=== PATIENT | male | born 1945 | race Caucasian/White ===

== ENCOUNTER 2018-11-18 16:04 | Inpatient (IN) | payer MEDICARE ==
[~2018-11-18] VITALS: Ht 182.9 cm; Wt 88.5 kg
[2018-11-18 16:46] LABS: APPEARANCE,URINE Clear (CLEAR); BILIRUBIN,URINE Negative (NEGATIVE); COLOR,URINE Yellow (YELLOW); GLUCOSE, URINE (UA) Negative (NEGATIVE); KETONES,URINE Negative (NEGATIVE); LEUKOCYTE ESTERASE ,URINE Negative (NEGATIVE); NITRATE,URINE Negative (NEGATIVE); OCCULT BLOOD,URINE Negative (NEGATIVE); PH,URINE 5.5 (5.0-8.0); PROTEIN,URINE Negative (NEGATIVE); UROBILINOGEN,URINE 0.2 mg/dL (0.2-1.0)
[2018-11-18] MEDS ORDERED: CEFTRIAXONE SODIUM 2 GM VIAL ONE (16:49)
[2018-11-18] MEDS ORDERED: KETOROLAC TROMETHAMINE 30MG/ML ONE (16:49)
[2018-11-18 17:11] LABS: BASOPHILS % (AUTO) 1.4 % (0.0-5.0); EOSINOPHILS % (AUTO) 5.1 % (0.0-8.0); HEMATOCRIT 42.3 % (42-54); LYMPHOCYTES % (AUTO) 31.3 % (21.0-51.0); MEAN CORPUSCULAR HEMOGLOBIN 30.9 pg (27.0-33.0); MEAN CORPUSCULAR HGB CONC 35.2 g/dL (32.0-36.0); MONOCYTES % (AUTO) 7.2 % (3.0-13.0); PLATELET COUNT (AUTO) 202 K/uL (130-400); RED BLOOD CELL COUNT(AUTO) 4.81 MIL/uL (4.50-6.20); RED CELL DISTRIBUTION WIDTH 12.6 % (11.0-15.5); WHITE BLOOD COUNT (AUTO) 5.7 K/uL (4.8-10.8)
[2018-11-18 17:28] LABS: INR 0.93 (0.85-1.15); PARTIAL THROMBOPLASTIN TIME 28.6 SEC (26.3-35.5); PROTHROMBIN TIME 9.8 SEC (9.6-11.6)
[2018-11-18 17:37] LABS: CARBON DIOXIDE 28 mmol/L (21-32); CHLORIDE 101 mmol/L (101-111); GLOMERULAR FILTR. RATE CALC 78 mL/min (>60); GLUCOSE,RANDOM 87 mg/dL (70-105); POTASSIUM 4.2 mmol/L (3.5-5.1); SODIUM SERUM 140 mmol/L (136-145); UREA NITROGEN, BLOOD 16 mg/dL (7-18)
[2018-11-18 17:48] LABS: ALANINE AMINOTRANSFERASE 26 U/L (12-78); ALBUMIN 3.9 g/dL (3.5-5.0); ASPARTATE AMINOTRANSFERASE 30 U/L (10-37); BILIRUBIN,TOTAL 0.6 mg/dL (0.2-1.0); CREATINE KINASE, TOTAL 94 U/L (21-232); MYOGLOBIN 59 ng/mL (10-92); TOTAL PROTEIN, SERUM 7.6 g/dL (6.0-8.3); TROPONIN I < 0.04 ng/mL (0.00-0.06)
[2018-11-18] MEDS ORDERED: KETOROLAC TROMETHAMINE 30MG/ML IV PRN (19:15)
[2018-11-18] MEDS ORDERED: FAMOTIDINE 20MG TAB 20 MG TAB ONE (19:59)
[2018-11-18] MEDS ORDERED: ZOSYN 3.375GM+NS 50ML 50 ML IV ONE (19:59)
[2018-11-18] MEDS ORDERED: ASPI-555 PO (23:02)
[2018-11-18] MEDS ORDERED: ROSU10TA22 PO (23:02)
--- NOTE | 2018-11-19 01:20 | NUR ---
ADMISSION NOTE: Received to floor per stretcher from ER. Fully awake and responsive. AOx3. VS checked and recorded. Assessment done ( See CPOE flow chart for full assessment). Plan of care initiated. Home meds listed. Photo of the wound taken and attached to chart. Monitored and observed for any unusual changes. Needs attended and cared for. Denies feeling of discomfort. No apparent distress noted.
[2018-11-19 01:30] VITALS: BP 141/86
[2018-11-19] MEDS: ZOSYN 3.375GM+NS 50ML 50 ML IV SCH ×3 (05:44→21:18)
[2018-11-19 05:45] VITALS: BP 135/80
[2018-11-19 06:31] LABS: BASOPHILS % (AUTO) 1.1 % (0.0-5.0); EOSINOPHILS % (AUTO) 5.7 % (0.0-8.0); HEMATOCRIT 40.6 % (42-54); LYMPHOCYTES % (AUTO) 29.3 % (21.0-51.0); MEAN CORPUSCULAR HEMOGLOBIN 30.8 pg (27.0-33.0); MEAN CORPUSCULAR HGB CONC 34.5 g/dL (32.0-36.0); MEAN CORPUSCULAR VOLUME 89.4 fL (79-99); MONOCYTES % (AUTO) 7.9 % (3.0-13.0); PLATELET COUNT (AUTO) 164 K/uL (130-400); RED BLOOD CELL COUNT(AUTO) 4.54 MIL/uL (4.50-6.20); RED CELL DISTRIBUTION WIDTH 12.2 % (11.0-15.5); WHITE BLOOD COUNT (AUTO) 5.8 K/uL (4.8-10.8)
[2018-11-19 06:44] LABS: ALBUMIN 3.4 g/dL (3.5-5.0); BILIRUBIN,TOTAL 0.5 mg/dL (0.2-1.0); CREATININE 1.1 mg/dL (0.5-1.5); POTASSIUM 4.1 mmol/L (3.5-5.1); TOTAL PROTEIN, SERUM 6.6 g/dL (6.0-8.3)
[2018-11-19 08:00] VITALS: BP 148/76
[2018-11-19] MEDS: ENOXAPARIN SODIUM 30 MG/0.3 ML SQ SCH (08:31)
[2018-11-19] MEDS: FAMOTIDINE 20MG TAB 20 MG TAB PO SCH ×2 (08:32→21:19)
[2018-11-19] MEDS: ASPIRIN 81 MG EC TAB PO SCH (08:38)
--- NOTE | 2018-11-19 12:05 | NUR ---
DCP CM met with pt discussed dc plans. Pt is independent prior to admission, lives at home with spouse. Pt has a cane and shower chair at home. Denies any equipments/services. Pt feels safe to go back home, spouse able to assist with transportation and needs as necessary. DC plan to home once stable. CM to cont to follow up. Addendum: 11/19/18 at 1207 by ANALI YNAG LVN CM Amended: Links added.
[2018-11-19 12:55] VITALS: BP 128/87
--- NOTE | 2018-11-19 14:46 | NUR ---
[facility] CONSULT PATIENT ASSESSED REQUESTED: PRESENTS WITH INSECT BITE TO RT LEG MEDIAL WITH DECREASED REDNESS AND DECREASED PAIN; [facility] RECOMMENDATIONS SUBMITTED. Addendum: 11/19/18 at 1449 by DOROTHY ARRIOLA LVN LVN W Amended: Links added.
[2018-11-19] MEDS ORDERED: CEFTRIAXONE SODIUM 1 GM IVP SCH (16:00)
[2018-11-19 16:19] VITALS: BP 126/69
[2018-11-19 19:20] VITALS: BP 136/76
[2018-11-19] MEDS ORDERED: ATORVASTATIN CALCIUM 20 MG TABLET PO SCH (21:00)
[2018-11-19] MEDS: BENZOCAINE/MENTH/CETYLPYRD CL 1 EACH LOZENGE MM PRN (22:05)
[2018-11-20 03:25] VITALS: BP 138/70
[2018-11-20] MEDS: ZOSYN 3.375GM+NS 50ML 50 ML IV SCH (05:44)
[2018-11-20 05:45] LABS: BASOPHILS % (AUTO) 1.3 % (0.0-5.0); EOSINOPHILS % (AUTO) 5.5 % (0.0-8.0); HEMATOCRIT 40.7 % (42-54); LYMPHOCYTES % (AUTO) 23.6 % (21.0-51.0); MEAN CORPUSCULAR HEMOGLOBIN 31.4 pg (27.0-33.0); MEAN CORPUSCULAR HGB CONC 35.5 g/dL (32.0-36.0); MEAN CORPUSCULAR VOLUME 88.4 fL (79-99); MONOCYTES % (AUTO) 8.2 % (3.0-13.0); NEUTROPHILS % (AUTO) 61.4 % (40.0-77.0); PLATELET COUNT (AUTO) 188 K/uL (130-400); RED CELL DISTRIBUTION WIDTH 12.3 % (11.0-15.5); WHITE BLOOD COUNT (AUTO) 6.1 K/uL (4.8-10.8)
[2018-11-20 05:56] LABS: CREATININE 1.2 mg/dL (0.5-1.5); POTASSIUM 4.1 mmol/L (3.5-5.1)
[2018-11-20 07:55] VITALS: BP 123/72
[2018-11-20] MEDS ORDERED: FLU VACC QS2019-20 36MOS UP/PF 60 MCG/0.5 ML ML IM ONE (09:00)
[2018-11-20] MEDS: FAMOTIDINE 20MG TAB 20 MG TAB PO SCH (09:06)
[2018-11-20] MEDS: ASPIRIN 81 MG EC TAB PO SCH (09:06)
[2018-11-20] MEDS: BENZOCAINE/MENTH/CETYLPYRD CL 1 EACH LOZENGE MM PRN (09:07)
[2018-11-20] MEDS: ENOXAPARIN SODIUM 30 MG/0.3 ML SQ SCH (09:09)
[2018-11-20] MEDS ORDERED: CEPH-578 PO (10:53)
--- NOTE | 2018-11-20 12:00 | NUR ---
PATIENT DISCHARGE GIVEN. ALL QUESTIONS ANSWERED . IV DISCONTINUED WITH INNER CANNULA INTACT. PATIENT TO FOLLOW UP WITH PCP AND FILL PRESCRIPTIONS. INSTRUCTED ON WOUND CARE TO APPLY BETADINE DAILY. PATIENT VERBALIZED INSTRUCTIONS
[2018-11-20 12:08] VITALS: BP 140/82
== END 2018-11-20 12:45 | disposition home or self-care (01) | DRG 603 ==
LOC: EDH 16:04 → EDHIP 19:02 → 3BH 11-19 01:39
PROVIDERS: ADMIT Internal Medicine; ATTEND Internal Medicine
DX: L03.115 Cellulitis of right lower limb (principal); S80.861A Insect bite (nonvenomous), right lower leg, initial encounter; W57.XXXA Bitten or stung by nonvenomous insect and other nonvenomous arthropods, initial encounter; M79.89 Other specified soft tissue disorders; R03.0 Elevated blood-pressure reading, without diagnosis of hypertension; E78.00 Pure hypercholesterolemia, unspecified; Z85.46 Personal history of malignant neoplasm of prostate; Z89.512 Acquired absence of left leg below knee; Z88.5 Allergy status to narcotic agent; Y93.89 Activity, other specified; Y92.89 Other specified places as the place of occurrence of the external cause; Y99.8 Other external cause status; Z23 Encounter for immunization
CPT/HCPCS: 36415; 71045; 80048; 80053; 81003; 82550; 83605; 83874; 84145; 84484; 85025; 85610; 85730; 87040; 87070; 87076; 87088; 93005; 93971; G0378; J0696; J1650; J1885; J2543